=== PATIENT | female | born 2000 | race Caucasian/White ===

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

== ENCOUNTER → 2018-01-01 | Outpatient (CLI) | payer BC ==
--- NOTE | 2018-01-05 07:26 | CPEEG ---
[f rep st] ELECTROENCEPHALOGRAM A 4 HOUR VIDEO EEG. DATE OF STUDY: 01/01/2018 DATE OF INTERPRETATION: 01/04/2018. INTERPRETATION: This 4 hour video EEG recording is essentially normal. There were no potentially epileptogenic abnormalities present during the awake or sleep studies. The patient denied any clinical events during the video EEG monitoring session. REPORT: This 4-hour video EEG contains 10 Hz alpha activity to the posterior head regions. There was no abnormal activation at rest, during photic stimulation or hyperventilation. The patient became drowsy and fell asleep during the study. During sleep, the patient had abundant positive occipital sharp transients of sleep (POSTs). There also was some persistent probable electrode artifact at T5 intermittently throughout the study. There was no definite abnormal activation during sleep or during times of arousal. The patient did not have any clinical events during the video EEG monitoring session. /[id number]/[id number]
== END ==
LOC: FCPNEURO 07:45
PROVIDERS: ATTEND Psychiatry & Neurology Neurology
DX: R56.9 Unspecified convulsions (principal)